=== PATIENT | female | born 1955 | race Caucasian/White ===

== ENCOUNTER → 2018-10-27 07:28 | Outpatient (CLI) | payer OTHER, MEDICAID, SELFPAY ==
[2018-10-27 09:18] LABS: Alanine Aminotransferase 27 IU/L (9-52); Albumin 4.2 g/dL (3.5-5.0); Albumin Globulin Ratio 1.6 (1.0-2.8); Alkaline Phosphatase 83 U/L (38-126); Aspartate Aminotransferase 22 IU/L (14-36); BUN Creatinine Ratio 25.7 (6-22); Bilirubin Total 0.4 mg/dL (0.2-1.3); Blood Urea Nitrogen 18 mg/dL (7-17); Calcium 9.7 mg/dL (8.4-10.2); Carbon Dioxide 32 mmol/L (22-32); Chloride 98 mmol/L (98-107); Cholesterol 184 mg/dL (140-199); Estimated Glomerular Filt Rate > 60.0 mL/min (>60); Globulin 2.7 g/dL (1.7-4.1); Glucose 86 mg/dL (80-110); HDL Cholesterol 70 mg/dL (40-60); HEMOLYSIS < 15 (0-50); LDL Cholesterol Calculated 102 mg/dL (<100); Potassium 3.8 mmol/L (3.4-5.1); Sodium 141 mmol/L (137-145); Total Protein 6.9 g/dL (6.3-8.2); Triglycerides 58 mg/dL (35-150)
[2018-10-27 11:29] LABS: Creatinine Urine Random 107.9 mg/dL
[2018-10-27 11:34] LABS: Microalbumi Creatinin Ratio Ur 10.1 ug/mg CR (<30); Microalbumin Urine Random 1.1 mg/dL (0-1.6)
== END ==
PROVIDERS: Visit Provider Physician Assistant
DX: I10 Essential (primary) hypertension (principal); Z13.220 Encounter for screening for lipoid disorders; Z13.6 Encounter for screening for cardiovascular disorders; Z82.49 Family history of ischemic heart disease and other diseases of the circulatory system
CPT/HCPCS: 36415; 80053; 80061; 82043; 82570

== ENCOUNTER → 2020-05-20 07:00 | Outpatient (CLI) | payer OTHER, SELFPAY ==
[2020-05-20 08:12] LABS: Add Manual Diff / Slide Review NO; Basophils Absolute Auto 0 /uL (0-100); Basophils Percent Auto 0.6 % (0-2); Eosinophils Absolute Auto 200 /uL (0-450); Eosinophils Percent Auto 2.7 % (2-4); Hematocrit 41.5 % (36-46); Hemoglobin 13.8 g/dL (12.0-16.0); Lymphocytes Absolute Auto 1700 /uL (1100-4500); Lymphocytes Percent Auto 24.5 % (25-40); Mean Corpuscular HGB Conc 33.2 % (30-36); Mean Corpuscular Hemoglobin 29.3 PG (26-34); Mean Corpuscular Volume 88.3 fL (80-100); Monocytes Absolute Auto 600 /uL (0-900); Monocytes Percent Auto 8.8 % (3-14); Neutrophils Absolute Auto 4400 /uL (1500-7000); Neutrophils Percent Auto 63.4 % (50-75); Platelet Count 337 X10^3/uL (150-400); Red Cell Distribution Width 13.9 % (11.6-14.8)
[2020-05-20 08:36] LABS: Alanine Aminotransferase 25 IU/L (<35); Albumin 4.2 g/dL (3.5-5.0); Albumin Globulin Ratio 1.4 (1.0-2.8); Alkaline Phosphatase 87 U/L (38-126); Aspartate Aminotransferase 28 IU/L (14-36); BUN Creatinine Ratio 32.8 (6-22); Bilirubin Total 0.7 mg/dL (0.2-1.3); Blood Urea Nitrogen 19 mg/dL (7-17); Calcium 9.3 mg/dL (8.4-10.2); Carbon Dioxide 35 mmol/L (22-32); Chloride 102 mmol/L (98-107); Cholesterol 188 mg/dL (140-199); Estimated Glomerular Filt Rate > 60.0 mL/min (>60); Glucose 97 mg/dL (80-110); HDL Cholesterol 60 mg/dL (40-60); HEMOLYSIS < 15 (0-50); LDL Cholesterol Calculated 118 mg/dL (<100); Potassium 3.1 mmol/L (3.4-5.1); Sodium 140 mmol/L (137-145); Total Protein 7.2 g/dL (6.3-8.2); Triglycerides 51 mg/dL (35-150)
[2020-05-20 08:48] LABS: Free T3, Triiodothyronine Free 3.75 pg/mL (2.77-5.27); Free T4, Direct Thyroxine 1.06 ng/dL (0.78-2.19)
[2020-05-20 09:02] LABS: Thyroid Stimulating Hormone 2.18 uIU/mL (0.47-4.68)
== END ==
PROVIDERS: PCP Nurse Practitioner; Referring Provider Nurse Practitioner; Visit Provider Nurse Practitioner
DX: Z00.00 Encounter for general adult medical examination without abnormal findings (principal); E04.1 Nontoxic single thyroid nodule; I10 Essential (primary) hypertension
CPT/HCPCS: 36415; 80053; 80061; 84439; 84443; 84481; 85025

== ENCOUNTER → 2020-06-22 06:52 | Outpatient (CLI) | payer OTHER, SELFPAY ==
[2020-06-22 07:16] LABS: HEMOLYSIS < 15 (0-50); Potassium 3.9 mmol/L (3.4-5.1)
== END ==
PROVIDERS: PCP Nurse Practitioner; Referring Provider Nurse Practitioner; Visit Provider Nurse Practitioner
DX: E87.6 Hypokalemia (principal)
CPT/HCPCS: 36415; 84132

== ENCOUNTER → 2020-07-29 10:23 | Outpatient (CLI) | payer OTHER, SELFPAY ==
--- NOTE | 2020-07-29 10:25 | DI.MG.S_ITS ---
BILATERAL DIGITAL SCREENING MAMMOGRAM 3D/2D WITH CAD: 07/29/2020 CLINICAL: Routine screening. Family history of breast cancer. Comparison is made to exams dated: 10/18/2015 mammogram, 12/11/2011 mammogram, and 01/03/2010 mammogram - [facility]. There are scattered fibroglandular elements in both breasts. Current study was also evaluated with a Computer Aided Detection (CAD) system. No significant masses, calcifications, or other findings are seen in either breast. There has been no significant interval change. IMPRESSION: NEGATIVE There is no mammographic evidence of malignancy. A 1 year screening mammogram is recommended. This exam was interpreted at Station ID: [id number]. NOTE: For mammograms, a report in lay terms will be sent to the patient. Approximately 15% of breast malignancies will not be visualized mammographically. In the management of a palpable breast mass, a negative mammogram must not discourage biopsy of a clinically suspicious lesion. Electronically Signed By: Herminio duffy/amparo:07/29/2020 12:24:29 letter sent: Normal Exam ACR BI-RADS Category 1: Negative 3341F
== END ==
PROVIDERS: PCP Nurse Practitioner; Referring Provider Nurse Practitioner; Visit Provider Nurse Practitioner
DX: Z12.31 Encounter for screening mammogram for malignant neoplasm of breast (principal); Z80.3 Family history of malignant neoplasm of breast
CPT/HCPCS: 77063; 77067

== ENCOUNTER → 2020-10-19 09:33 | Outpatient (CLI) | payer OTHER, SELFPAY ==
[2020-10-19] MEDS: COVID-19 VACC #1, MRNA(MOD) 100 MCG/0.5 ML VIAL IM (09:40)
== END ==
PROVIDERS: PCP Nurse Practitioner; Visit Provider Internal Medicine
DX: Z23 Encounter for immunization (principal)
CPT/HCPCS: 0011A; 91301

== ENCOUNTER → 2020-11-16 09:00 | Outpatient (CLI) | payer OTHER, SELFPAY ==
[2020-11-16] MEDS: COVID-19 VACC #2, MRNA(MOD) 100 MCG/0.5 ML VIAL IM (09:16)
== END ==
PROVIDERS: PCP Nurse Practitioner; Visit Provider Internal Medicine
DX: Z23 Encounter for immunization (principal)
CPT/HCPCS: 0012A; 91301

== ENCOUNTER 2021-05-12 11:23 | Emergency (ER) | payer OTHER, SELFPAY ==
[2021-05-12 11:47] VITALS: PULSE 71; O2SAT 97
[2021-05-12 11:48] VITALS: BP 162/76; BP 176/86; PULSE 68; PULSE 72; RESP 18; TEMP 36.8; O2SAT 100; O2SAT 98; BMI 32.1
[2021-05-12 12:00] VITALS: BP 156/73; PULSE 67; O2SAT 98
--- NOTE | 2021-05-12 12:07 | PC.NURSE ---
pt states fall 10/ with multiple bruising and intermittent light headedness. in addition pt states some numbness and tingling to L inside of mouth. pt denies pain and light headedness at rest.
--- NOTE | 2021-05-12 12:25 | DI.CT.S_ITS ---
PROCEDURE: CT HEAD/BRAIN WO CON INDICATIONS: lightheadedness 5 days after fall TECHNIQUE: Noncontrast 4.5 mm thick angled axial sections acquired from the foramen magnum to the vertex, with coronal and sagittal reformats. For radiation dose reduction, the following was used: automated exposure control, adjustment of mA and/or kV according to patient size. COMPARISON: None. FINDINGS: Image quality: Excellent. CSF spaces: Basal cisterns are patent. No extra-axial fluid collections. Ventricles are normal in size and shape. Brain: No midline shift. No intracranial masses or hemorrhage. Foley-white matter interface is normal. Skull and face: Calvarium and visualized facial bones are intact, without suspicious lesions. Sinuses: Visualized sinuses and mastoids are clear. IMPRESSION: Unremarkable CT brain. No intracranial hemorrhage or mass effect. Approved by: Leon Jarquin M.D. on 05/12/2021 at 12:03
--- NOTE | 2021-05-12 12:25 | DI.CT.S_ITS ---
PROCEDURE: CT FACIAL BONES WO CON INDICATIONS: Trauma, pain TECHNIQUE: Noncontrast 2.5 mm thick axial images acquired from the mandible through the frontal sinuses, with coronal and sagittal reformatting. For radiation dose reduction, the following was used: automated exposure control, adjustment of mA and/or kV according to patient size. COMPARISON: [facility], CT, CT HEAD/BRAIN WO CON, 05/12/2021, 12:40. FINDINGS: Maxillofacial Bones: The zygomaticomaxillary complex is intact. The pterygoid plates and skull base are unremarkable. No evidence of fracture or lytic lesion. Mandible: The mandible is intact without fracture. Unremarkable temporomandibular articulation other than arthritic changes noted in the left TMJ Dentition: Unremarkable mandibular and maxillary dentition. Soft tissues: No maxillofacial soft tissue swelling. No radiopaque foreign bodies. Orbits: The osseous orbits, globes and ocular muscles unremarkable. Sinuses and Mastoid: The visualized portion of the paranasal sinuses and mastoids are normal. No air-fluid levels or wall fractures. The nasal vault is unremarkable. IMPRESSION: 1. No evidence of fracture or foreign body. 2. Mild left TMJ arthritic changes. Approved by: Leon Jarquin M.D. on 05/12/2021 at 12:01
[2021-05-12 12:30] VITALS: BP 164/74; PULSE 62; RESP 18; TEMP 36.6; O2SAT 97
--- NOTE | 2021-05-12 12:32 | ED_ITS ---
HPI - Fall <Jennifer RaderJONG - Last Filed: 05/12/21 14:41> General Chief Complaint: Fall Stated Complaint: Fell on Saturday- sent by [facility]- poss concussion Time Seen by Provider: 05/12/21 12:14 Source: patient Mode of arrival: Family Vehicle History of Present Illness HPI Narrative: 65-year-old female presents to the emergency department with complaint of lightheadedness and the feeling of numbness the top of her mouth after falling 6 days ago. She states she was walking down for stairs when she slipped either on the top or 2nd stair and fell down the other 2 stairs because they were wet from the rain. She reports that it all happened so fast that she does not know exactly what hit wear, but she denies LOC, denies any nausea or vomiting, denies any seizure, changes in her mentation, difficulty swallowing, neck pain, chest pain or shortness of breath. She denies any weakness in her extremities, she reports that she has a lot of bruising and it has been painful, mostly on the left side of her face and left leg, she also has bruising on the right hip. She is most concerned about feeling lightheaded all week, she denies any dizziness or feeling dizzy if she sits up or stands up. She also reports feeling concerned that she feels air where shouldn't be in the top of her mouth. She reports that this area is also numb. She has ecchymosis around her left, no changes to her vision, no difficulty with balance. She reports she has taken Tylenol each night this week which has been helpful to sleep, she denies any other medications, she was afraid to makes anything with her blood pressure pill. She lives alone, runs the [employer], reports that it has been difficult this week because she has had to rest so much. She reports that she has just felt poor overall after this fall. Related Data Home Medications Medication Instructions Recorded Confirmed acetaminophen 500 mg tablet 1,000 mg PO Q6H PRN 10/06/18 05/15/21 (Tylenol Extra Strength) Previous Rx's Medication Instructions Recorded metoprolol succinate 25 mg 25 mg PO BID #180 tab 08/09/20 tablet,extended release 24 hr hydrochlorothiazide 25 mg tablet 25 mg PO DAILY #90 tab 02/06/21 nystatin 100,000 unit/gram topical 1 applic TOPICAL BID #15 g 02/06/21 powder Allergies Allergy/AdvReac Type Severity Reaction Status Date / Time lisinopril [LISINOPRIL] AdvReac Mild dizzyness Verified 05/15/21 15:17 Review of Systems <JONG Skinner - Last Filed: 05/12/21 14:41> Review of Systems Narrative: General: denies fever, chills, Endorses feeling lightheaded Head/Neck: denies headache, neck pain Eyes: denies visual changes, eye pain Cardio: denies chest pain, palpitations Respiratory: denies shortness of breath, cough GI: denies abdominal pain, nausea, vomiting, or diarrhea : denies dysuria, hematuria MSK: denies joint pain, muscle weakness, endorses having left elbow and left leg pain but notes changes to range of motion or gait, no numbness or tingling, complains of right leg pain from the bruising. Skin: denies rash, itching Neuro: denies numbness, tingling Patient History <JONG Skinner - Last Filed: 05/12/21 14:41> Medical History Bilateral thumb pain Breast cancer screening Chicken pox (~1960) Hand problems (~2018) Hypertension (~2009) Measles (~1965) Preventative health care Surgical History History of tonsillectomy (~1963) Family History Brother Age: 70 Hypertension Brother Age: 67 Hypertension Father Alzheimers disease Mother Age: 92 Osteoarthritis Giant cell arteritis Sister Age: 69 Hypertension Obese Giant cell arteritis Breast cancer Sister Age: 61 Hypertension H/O partial thyroidectomy Grandfather Parkinson's disease Social History Smoking Status: Former smoker second hand exposure: Yes (I was as a child. My mother smoked and I also worked in a restaurant. ) alcohol intake: current (just occasionally.) substance use type: does not use Smoking Status: Former smoker alcohol intake frequency: 0-2 drinks per day Substance Use Type: does not use Exam <JONG Skinner - Last Filed: 05/12/21 14:41> Narrative Exam Narrative: Independently reviewed vitals signs and nursing notes. General: Awake, alert, nontoxic, no cardiorespiratory distress, well-appearing Head/Neck: ecchymosis around left eye, and left cheek and down to left mandible, no open wounds neck full range of motion Eyes: EOMI, conjunctiva normal Nose: nares patent, no rhinorrhea Mouth/Throat: moist mucus membranes, posterior pharynx normal, no oral lesions Cardio: Regular rate and rhythm, no peripheral edema Respiratory: respirations unlabored without wheezing, stridor, or rales. No retractions. GI: Abdomen soft, nontender MSK: Moves all extremities, neurovascularly intact, complains of generalized pain with movement from the bruising. Skin: Normal capillary refill, no rash, multiple areas with ecchymosis, no open wounds Neuro: Normal speech and cognition, normal gait Initial Vital Signs Initial Vital Signs: Vital Signs Pulse Rate 71 05/12/21 11:47 Pulse Oximetry 97 05/12/21 11:47 <Yocasta Mckay DO - Last Filed: 05/16/21 07:03> Initial Vital Signs Initial Vital Signs: Vital Signs Pulse Rate 71 05/12/21 11:47 Pulse Oximetry 97 05/12/21 11:47 Scores <FREDO SkinnerP - Last Filed: 05/12/21 14:41> Russian CT Head Rule Age <16 years old: No Patient on blood thinners: No Seizure after injury: No Exclusion: Patient NOT Excluded, Proceed to next steps GCS < 15 at 2 hr post trauma: No Suspected open or depressed skull fracture: No Any sign of basilar skull fracture (hemotympanum, raccoon eyes, Morrison's sign, CSF abena-/rhinorrhea): No Two or more episodes of vomiting: No Age greater or equal to 65 years: Yes Retrograde amnesia to the event greater or equal to 30 min: No Dangerous Mechanism (pedestrian vs. mv, occupant ejected from mv, fall from >3 ft or > 5 stairs): No Recommendation: Consider CT. The Russian Head CT Rule cannot rule out need for Imaging. <Yocasta Mckay DO - Last Filed: 05/16/21 07:03> Russian CT Head Rule Exclusion: Patient NOT Excluded, Proceed to next steps Recommendation: Consider CT. The Russian Head CT Rule cannot rule out need for Imaging. Course <JONG Skinner - Last Filed: 05/12/21 14:41> Orders Ordered: ED Orders 05/12/21 12:25 CT facial bones wo con Stat CT head/brain wo con Stat #415 - Emergency Medicine: Utilization of CT for Minor Blunt Head Trauma (Adult) [x] Patient is 18 or older, presenting with minor blunt head trauma. Head CT (including cosigned orders) was ordered by an emergency career development specialist for trauma because (select one or more): [SATISFIES MIPS PERFORMANCE] Reasons: [x] Patient is 65 or older [] Patient GCS < 15 [] Patient has focal neurologic deficit Vital Signs Vital signs: Vital Signs - 8 hr 05/12/21 11:47 05/12/21 11:48 05/12/21 12:00 Temperature 98.3 F Pulse Rate 71 68 67 Respiratory Rate 18 Blood Pressure 162/76 H 156/73 H Pulse Oximetry 97 98 98 05/12/21 12:30 Temperature 98 F Pulse Rate 62 Respiratory Rate 18 Blood Pressure 164/74 H Pulse Oximetry 97 <Yocasta Mckay DO - Last Filed: 05/16/21 07:03> Orders Ordered: ED Orders 05/12/21 12:25 CT facial bones wo con Stat CT head/brain wo con Stat Vital Signs Vital signs: Vital Signs - 8 hr 05/12/21 11:47 05/12/21 11:48 05/12/21 12:00 Temperature 98.3 F Pulse Rate 71 68 67 Respiratory Rate 18 Blood Pressure 162/76 H 156/73 H Pulse Oximetry 97 98 98 05/12/21 12:30 Temperature 98 F Pulse Rate 62 Respiratory Rate 18 Blood Pressure 164/74 H Pulse Oximetry 97 MDM - Fall <JONG Skinner - Last Filed: 05/12/21 14:41> Lab Data Labs: Urine Dip Bedside Urine Glucose Negative Bedside Urine Bilirubin - Negative Bedside Urine Ketone - Negative Urine Specific Gunter 1.010 Bedside Urine Occult Blood - Negative Bedside Urine pH 6.5 Bedside Urine Protein - Negative Bedside Urine Urobilinogen 0.2 Bedside Urine Nitrite - Negative Bedside Urine Leukocytes - Negative Esterase MDM Narrative Medical decision making narrative: 65-year-old female presents to the emergency department after a fall 60s ago with complaints of lightheadedness. It was questionable whether not she remembered all of the details of her fall but martha nt states The fall happened so fast she just remembers any hitting at the rocks and she was awake the whole time after the fall. She denies mental status changes, dizziness, states she just feels lightheaded mid does not improving. She had a CT of her brain and of her face today without contrast, results: Unremarkable CT brain. No intracranial hemorrhage or mass effect. Face CT: The visualized portion of the paranasal sinuses and mastoids are normal. No air- fluid levels or wall fractures. The nasal vault is unremarkable. no evidence of fracture foreign body. This is most likely a concussion and at this point (6 days post injury) possible concussion syndrome. Patient had 0 deficits on my neuro exam, cranial nerves 2-12 were tested without any gross deficits. Patient ambulates with steady gait, EOMs intact without pain. Patient was educated on concussion therapy at home, and understands to follow-up with her PCP about this in the next couple of days. Patient understands to return to the emergency department for any worsening of the symptoms, nausea vomiting, unsteady gait. Patient is appropriate and amenable to discharge home. Vital signs are stable on repeat examination is unremarkable. Patient has been informed of results. Patient has been given strict return to ER precautions for any new or worsening symptoms. Patient understands to follow up closely with outpatient providers as instructed. Patient understands plan and agrees to discharge home. All questions and concerns answered at this time. <Yocasta Mckay DO - Last Filed: 05/16/21 07:03> Lab Data Labs: Urine Dip Bedside Urine Glucose Negative Bedside Urine Bilirubin - Negative Bedside Urine Ketone - Negative Urine Specific Gunter 1.010 Bedside Urine Occult Blood - Negative Bedside Urine pH 6.5 Bedside Urine Protein - Negative Bedside Urine Urobilinogen 0.2 Bedside Urine Nitrite - Negative Bedside Urine Leukocytes - Negative Esterase Discharge Plan Departure Patient Disposition: Home Clinical Impression: Multiple contusions Head injury, closed, with concussion Qualifiers: Encounter type: initial encounter Loss of consciousness presence/duration: without LOC Qualified Code(s): S06.0X0A - Concussion without loss of consciousness, initial encounter Instructions: DI for Concussion, DI for Postconcussion Syndrome Activity Restrictions/Additional Instructions: *You have been diagnosed with a closed-head injury, multiple contusions, and likely a concussion. Good news is that your CT your brain and facial bones were negative for fractures, bleeds, or any disruption of sinuses. I feel reassured that you are on the upside of this injury, I am sorry that happened. If you develop any worsening symptoms including difficulty with balance, worsening lightheadedness, nausea or vomiting, changes in your memory, please return to the emergency department for further evaluation. Please schedule an appointment with your primary care provider for follow-up of your lightheadedness from this injury. *What to do: *Please continue to take your regular medications as directed. [ ] New medication prescriptions sent to your pharmacy: [ ] [ ] New medication written as a paper prescription [ x] No new medications given *Please follow up with your primary care provider in 2-3 days, call for an appointment. Let them know you were seen in the Emergency Department and that we ask that you be seen in follow up. We will electronically transmit a record of today's note if your PCP is in our system *If you do not have a primary care provider please contact the [facility] Resource line at [phone]. They will ask some questions about your medical history and help get you set up with a doctor in the community. *Return to Emergency Department if you should have any new, worsening or c oncerning symptoms, such as [fever greater than 101F, chills, worsening pain, persistent vomiting or other bothersome symptoms] Prescriptions: No Action acetaminophen [Tylenol Extra Strength] 500 mg tablet 1,000 mg PO Q6H PRNRF: 0 metoprolol succinate 25 mg tablet extended release 24 hr 25 mg PO BID Qty: 180 RF: 3 hydrochlorothiazide 25 mg tablet 25 mg PO DAILY Qty: 90 RF: 3 nystatin 100,000 unit/gram powder 1 applic topical BID Qty: 15 RF: 2 Referrals: Sophie Shearer ARNP [Primary Care Provider] - 3-5 days <Yocasta Mckay DO - Last Filed: 05/16/21 07:03> [facility] David Attestation: I was immediately available in the department for consultation. Documentation has been reviewed. I agree with assessment and plan.
== END 2021-05-12 13:33 | disposition home or self-care (01) ==
PROVIDERS: Emergency Provider Nurse Practitioner Critical Care Medicine; PCP Nurse Practitioner
DX: S06.0X0A Concussion without loss of consciousness, initial encounter (principal); S00.83XA Contusion of other part of head, initial encounter; W10.9XXA Fall (on) (from) unspecified stairs and steps, initial encounter
CPT/HCPCS: 70450; 70486; 81003; 99282; 99284

== ENCOUNTER → 2021-07-31 11:24 | Outpatient (CLI) | payer OTHER, SELFPAY ==
[2021-07-31 12:38] LABS: Alanine Aminotransferase 23 IU/L (<35); Albumin 4.4 g/dL (3.5-5.0); Albumin Globulin Ratio 1.4 (1.0-2.8); Alkaline Phosphatase 86 U/L (38-126); Aspartate Aminotransferase 27 IU/L (14-36); BUN Creatinine Ratio 25.4 (6-22); Bilirubin Total 0.4 mg/dL (0.2-1.3); Blood Urea Nitrogen 17 mg/dL (7-17); Calcium 10.1 mg/dL (8.4-10.2); Carbon Dioxide 38 mmol/L (22-32); Chloride 99 mmol/L (98-107); Estimated Glomerular Filt Rate > 60.0 mL/min (>60); Globulin 3.2 g/dL (1.7-4.1); Glucose 93 mg/dL (80-110); HEMOLYSIS < 15 (0-50); Potassium 3.1 mmol/L (3.4-5.1); Sodium 141 mmol/L (137-145); Total Protein 7.6 g/dL (6.3-8.2)
[2021-07-31 13:05] LABS: TSH w/ Reflex to FT4 1.61 uIU/mL (0.47-4.68)
== END ==
PROVIDERS: PCP Nurse Practitioner; Referring Provider Nurse Practitioner; Visit Provider Nurse Practitioner
DX: I10 Essential (primary) hypertension (principal); Z79.899 Other long term (current) drug therapy
CPT/HCPCS: 36415; 80053; 84443

== ENCOUNTER → 2022-09-11 06:57 | Outpatient (CLI) | payer OTHER, SELFPAY ==
[2022-09-11 08:01] LABS: Alanine Aminotransferase 24 IU/L (<35); Albumin 4.2 g/dL (3.5-5.0); Albumin Globulin Ratio 1.3 (1.0-2.8); Alkaline Phosphatase 86 U/L (38-126); Aspartate Aminotransferase 24 IU/L (14-36); BUN Creatinine Ratio 24.6 (6-22); Bilirubin Total 0.5 mg/dL (0.2-1.3); Blood Urea Nitrogen 16 mg/dL (7-17); Calcium 8.9 mg/dL (8.4-10.2); Carbon Dioxide 35 mmol/L (22-32); Chloride 97 mmol/L (98-107); Estimated Glomerular Filt Rate > 60 mL/min (>60); Globulin 3.2 g/dL (1.7-4.1); Glucose 94 mg/dL (80-110); HEMOLYSIS < 15 (0-50); Magnesium 2.2 mg/dL (1.6-2.3); Potassium 3.8 mmol/L (3.4-5.1); Sodium 139 mmol/L (137-145); Total Protein 7.4 g/dL (6.3-8.2)
[2022-09-11 08:17] LABS: Free T3, Triiodothyronine Free 4.13 pg/mL (2.77-5.27); Free T4, Direct Thyroxine 1.05 ng/dL (0.78-2.19)
[2022-09-11 08:30] LABS: Thyroid Stimulating Hormone 2.69 uIU/mL (0.47-4.68)
== END ==
PROVIDERS: PCP Nurse Practitioner; Referring Provider Nurse Practitioner; Visit Provider Nurse Practitioner
DX: E87.6 Hypokalemia (principal); I10 Essential (primary) hypertension
CPT/HCPCS: 36415; 80053; 83735; 84439; 84443; 84481

== ENCOUNTER → 2022-09-25 08:29 | Outpatient (CLI) | payer OTHER, SELFPAY ==
--- NOTE | 2022-09-25 08:30 | DI.MG.S_ITS ---
BILATERAL DIGITAL SCREENING MAMMOGRAM 3D/2D WITH CAD: 09/25/2022 CLINICAL: Routine screening. Family history of breast cancer. Comparison is made to exams dated: 07/29/2020 mammogram, 10/18/2015 mammogram, and 12/11/2011 mammogram - [facility]. There are scattered areas of fibroglandular density in both breasts (category b / 25%-50% glandular tissue). Current study was also evaluated with a Computer Aided Detection (CAD) system. No significant masses, calcifications, or other findings are seen in either breast. There has been no significant interval change. IMPRESSION: NEGATIVE There is no mammographic evidence of malignancy. A 1 year screening mammogram is recommended. Based on the Tyrer Cuzick model (a risk assessment model) the patient's lifetime risk is 13.2% and her 10 year risk is 6.7%. According to the ACR, ACS, and NCCN guidelines, an annual breast MRI exam along with mammogram is recommended if the patient's lifetime risk is 20% or greater. This exam was interpreted at Station ID: [id number]. NOTE: For mammograms, a report in lay terms will be sent to the patient. Approximately 15% of breast malignancies will not be visualized mammographically. In the management of a palpable breast mass, a negative mammogram must not discourage biopsy of a clinically suspicious lesion. Electronically Signed By: Norris Russell M.D., jr/amparo:09/25/2022 14:35:07 letter sent: Normal Exam ACR BI-RADS Category 1: Negative 3341F
== END ==
PROVIDERS: PCP Nurse Practitioner; Referring Provider Nurse Practitioner; Visit Provider Nurse Practitioner
DX: Z12.31 Encounter for screening mammogram for malignant neoplasm of breast (principal); Z80.3 Family history of malignant neoplasm of breast
CPT/HCPCS: 77063; 77067

== ENCOUNTER → 2022-09-28 09:53 | Outpatient (CLI) | payer OTHER, SELFPAY ==
--- NOTE | 2022-09-28 10:13 | DI.DEXA.S_ITS ---
Indication: postmenopausal; screening for osteoporosis; parental hip fracture; Referring Provider: NAS VERGARA Study: Bone densitometry was performed. Exam Date: September 28, 2022 Accession number: [id number] Bone Density: Region BMD T-score Z-score Classification AP Spine(L1-L4) 1.035 -0.1 1.7 Normal Femoral Neck (Left) 0.713 -1.2 0.3 Osteopenia Total Hip (Left) 0.800 -1.2 0.1 Osteopenia Femoral Neck (Right) 0.754 -0.9 0.7 Normal Total Hip (Right) 0.833 -0.9 0.4 Normal Total Hip Mean 0.816 -1.1 0.3 Osteopenia World Health Organization criteria for BMD impression classify patients as: Normal (T-score at or above -1.0), Osteopenia (T-score between -1.0 and -2.5), or Osteoporosis (T-score at or below -2.5). 10-year Fracture Risk(1): Major Osteoporotic Fracture 15% Hip Fracture 0.9% Reported Risk Factors: [place] (), Neck BMD=0.713, BMI=32.6, parental fracture (1) FRAX(R) Version 3.08. Fracture probability calculated for an untreated patient. Fracture probability may be lower if the patient has received treatment. Impression: The patient has low bone mass, based on the Left Total Hip T-score. The patient has an estimated ten-year risk of hip fracture of 0.9% and an estimated ten-year risk of major fracture of 15%, based on the WHO FRAX algorithm. The patient has risk factors, including: parental hip fracture. Discussion: BONE DENSITY IS LOW AT ONE OR MORE SKELETAL SITES. This patient's lowest T-score is low at one or more skeletal sites. It meets the World Health Organization's (WHO) criteria for ?low bone mass? (T-score between -1.0 and -2.5). The patient's 10-year risk of fracture as calculated by FRAX is less than the threshold where pharmacological therapy is recommended by the National Osteoporosis Foundation (NOF). However, all treatment decisions require clinical judgment and consideration of individual patient factors, including patient preferences, comorbidities, previous drug use, risk factors not captured in the FRAX model (e.g., frailty, falls, vitamin D deficiency, increased bone turnover, interval significant decline in bone density) and possible under or overestimation of fracture risk by FRAX. The patient should follow a healthful lifestyle (good nutrition with adequate calcium and vitamin D, and appropriate weight-bearing exercise). Follow-Up: Consider repeating this study in 2 to 3 years to reassess this patient's status, or sooner if there is some new clinical indication. Reported by: Krystin Fuentes M.D. on 09/28/2022 11:09:00 AM.
== END ==
PROVIDERS: PCP Nurse Practitioner; Referring Provider Nurse Practitioner; Visit Provider Nurse Practitioner
DX: M85.88 Other specified disorders of bone density and structure, other site (principal); Z13.820 Encounter for screening for osteoporosis; Z78.0 Asymptomatic menopausal state
CPT/HCPCS: 77080

== ENCOUNTER → 2022-11-22 16:11 | Outpatient (CLI) | payer OTHER, SELFPAY ==
--- NOTE | 2022-11-22 16:13 | DI.RAD.S_ITS ---
PROCEDURE: XR KNEE RT 3V INDICATIONS: Right knee injury TECHNIQUE: 3 views of the knee were acquired. COMPARISON: None. FINDINGS: Bones: No fractures or dislocations. No suspicious bony lesions. Mild degenerative changes with minimal medial joint space narrowing. There is an osteophyte of the medial patella. Soft tissues: No joint effusion. No suspicious soft tissue calcifications. IMPRESSION: Mild degenerative changes of the right knee. No acute abnormality. Dictated by: Manuel Salazar M.D. on 11/23/2022 at 6:32 Approved by: Manuel Salazar M.D. on 11/23/2022 at 6:34
== END ==
PROVIDERS: PCP Nurse Practitioner; Referring Provider Nurse Practitioner Family; Visit Provider Nurse Practitioner Family
DX: S89.91XA Unspecified injury of right lower leg, initial encounter (principal); X58.XXXA Exposure to other specified factors, initial encounter
CPT/HCPCS: 73562

== ENCOUNTER → 2023-09-16 07:02 | Outpatient (CLI) | payer OTHER, SELFPAY ==
[2023-09-16 08:52] LABS: Alanine Aminotransferase 24 IU/L (<35); Albumin 4.1 g/dL (3.5-5.0); Albumin Globulin Ratio 1.4 (1.0-2.8); Alkaline Phosphatase 89 U/L (38-126); Aspartate Aminotransferase 28 IU/L (14-36); BUN Creatinine Ratio 22.4 (6-22); Bilirubin Total 0.7 mg/dL (0.2-1.3); Blood Urea Nitrogen 15 mg/dL (7-17); Calcium 9.5 mg/dL (8.4-10.2); Carbon Dioxide 32 mmol/L (22-32); Chloride 98 mmol/L (98-107); Cholesterol 204 mg/dL (140-199); Estimated Glomerular Filt Rate > 60 mL/min (>60); Globulin 2.9 g/dL (1.7-4.1); Glucose 84 mg/dL (80-110); HDL Cholesterol 75 mg/dL (40-60); HEMOLYSIS < 15 (0-50); LDL Cholesterol Calculated 118 mg/dL (<100); Potassium 3.9 mmol/L (3.4-5.1); Sodium 139 mmol/L (137-145); Triglycerides 57 mg/dL (35-150)
[2023-09-16 09:01] LABS: Free T3, Triiodothyronine Free 4.77 pg/mL (2.77-5.27); Free T4, Direct Thyroxine 1.05 ng/dL (0.78-2.19)
[2023-09-16 09:15] LABS: Thyroid Stimulating Hormone 2.83 uIU/mL (0.47-4.68)
[2023-09-16 11:36] LABS: Creatinine Urine Random 59.1 mg/dL
[2023-09-16 11:48] LABS: Microalbumin Urine Random < 0.6 mg/dL (0-1.6)
== END ==
PROVIDERS: PCP Nurse Practitioner; Referring Provider Nurse Practitioner; Visit Provider Nurse Practitioner
DX: I10 Essential (primary) hypertension (principal); E78.5 Hyperlipidemia, unspecified
CPT/HCPCS: 36415; 80053; 80061; 82043; 82570; 84439; 84443; 84481